=== PATIENT | female | born 1955 | race Caucasian/White ===

== ENCOUNTER 2016-12-16 20:56 | Inpatient (IN) | payer MEDICARE, MEDICAID ==
[~2016-12-16] VITALS: Ht 167.6 cm; Wt 82.6 kg
[2016-12-16 21:36] VITALS: BP 144/88
[2016-12-16] MEDS ORDERED: HALOPERIDOL 5 MG TABLET PO PRN (21:45)
[2016-12-16] MEDS ORDERED: ASEN10TA8 SL (22:00)
[2016-12-16] MEDS ORDERED: ALBU8HFA IH (22:00)
[2016-12-16] MEDS ORDERED: CYCL10 PO (22:00)
[2016-12-16] MEDS ORDERED: BECL8.7A5 (22:00)
[2016-12-16] MEDS ORDERED: PNEUMOCOCCAL VACCINE POLYVALENT 0.5 ML VIAL [PPSV23] IM ONE (22:30)
[2016-12-16] MEDS: ZOLPIDEM TARTRATE 10 MG TABLET PO PRN (22:33)
[2016-12-16 22:34] VITALS: BP 144/88
[2016-12-16] MEDS ORDERED: CloNIDine HCL 0.1 MG TABLET PO PRN (22:45)
[2016-12-16] MEDS ORDERED: ALBUTEROL SULFATE HFA 90 MCG/PUFF 8 GM INHALER IH PRN (22:45)
[2016-12-16] MEDS ORDERED: PETROLATUM,WHITE 71 GM JELLY TP PRN (23:15)
[2016-12-17 01:25] VITALS: BP 106/73
[2016-12-17] MEDS: LORazepam 2 MG TABLET PO PRN (01:25)
[2016-12-17 08:02] VITALS: BP 106/69
[2016-12-17] MEDS: NICOTINE 21 MG/24 HOUR PATCH TD SCH (08:23)
[2016-12-17] MEDS: BECLOMETHASONE DIPR 80 MCG/PUFF 8.7 GM INHALER IH SCH ×2 (08:23→16:40)
[2016-12-17] MEDS: CYCLOBENZAPRINE HCL 10 MG TABLET PO PRN ×2 (08:28→20:24)
[2016-12-17 08:50] LABS: BASOPHILS # (AUTO) 0.02 K/uL (0.00-0.20); BASOPHILS % (AUTO) 0.3 % (0.0-2.0); EOSINOPHILS # (AUTO) 0.13 K/uL (0.00-0.70); EOSINOPHILS % (AUTO) 2.22 % (1.0-6.0); HEMATOCRIT 30.9 % (36-46); HEMOGLOBIN 10.3 g/dL (12.0-16.0); LYMPHOCYTES # (AUTO) 1.5 K/uL (1.0-4.8); LYMPHOCYTES % (AUTO) 25.2 % (22.0-44.0); MEAN CORPUSCULAR HEMOGLOBIN 31.3 pg (26.0-34.0); MEAN CORPUSCULAR HGB CONC 33.2 G/dL (31.0-37.0); MEAN CORPUSCULAR VOLUME 94 fL (80-100); MONOCYTES # (AUTO) 0.5 K/uL (0.1-1.0); MONOCYTES % (AUTO) 8.2 % (2.0-9.0); NEUTROPHILS # (AUTO) 3.7 K/uL (1.8-7.7); NEUTROPHILS % (AUTO) 64.1 % (40.0-70.0); PLATELET COUNT (AUTO) 184 K/uL (150-450); RED BLOOD CELL COUNT(AUTO) 3.28 MIL/uL (4.00-5.20); RED CELL DISTRIBUTION WIDTH 14.2 % (11.5-14.5); WHITE BLOOD COUNT (AUTO) 5.8 K/uL (4.5-11.0)
[2016-12-17 09:24] LABS: ALANINE AMINOTRANSFERASE 27 U/L (12-78); ANION GAP 9 mmol/L (8-16); ASPARTATE AMINOTRANSFERASE 18 U/L (15-37); BILIRUBIN,TOTAL 0.5 mg/dL (0.1-1.0); CALCIUM, TOTAL 8.5 mg/dL (8.8-10.5); CARBON DIOXIDE 28 mmol/L (22-29); CHLORIDE 106 mmol/L (98-107); CHOL/HDL RATIO 4.5 (3.9-5.7); CREATININE 0.75 mg/dL (0.60-1.30); GLOMERULAR FILTR. RATE CALC > 60 mL/min (>60); POTASSIUM 3.2 mmol/L (3.5-5.1); SODIUM SERUM 143 mmol/L (136-145); THYROID STIMULATING HORMONE 0.67 uIU/mL (0.36-3.74); TOTAL PROTEIN, SERUM 6.1 g/dL (6.4-8.2); UREA NITROGEN, BLOOD 10 mg/dL (7-18)
[2016-12-17] MEDS ORDERED: POTASSIUM CHLORIDE 20 MEQ ER TABLET PO ONE (09:45)
[2016-12-17 16:00] VITALS: BP 116/89
[2016-12-17] MEDS: ASENAPINE 10 MG SUBLINGUAL TABLET SL SCH (16:39)
[2016-12-17 20:25] VITALS: BP 117/67
[2016-12-17] MEDS ORDERED: ALBUTEROL SULFATE HFA 90 MCG/PUFF 8 GM INHALER IH PRN (21:15)
[2016-12-18 06:48] VITALS: BP 116/69
[2016-12-18] MEDS: LORazepam 2 MG TABLET PO PRN (07:04)
[2016-12-18 08:11] LABS: HEMOGLOBIN A1C 5.5 % (4.5-6.2)
[2016-12-18 08:24] VITALS: BP 103/61
[2016-12-18 08:39] LABS: CHOL/HDL RATIO 4.7 (3.9-5.7); THYROID STIMULATING HORMONE 0.83 uIU/mL (0.36-3.74)
[2016-12-18] MEDS: CYCLOBENZAPRINE HCL 10 MG TABLET PO PRN ×2 (09:15→17:48)
[2016-12-18] MEDS: ASENAPINE 10 MG SUBLINGUAL TABLET SL SCH ×2 (09:15→16:31)
[2016-12-18] MEDS: NICOTINE 21 MG/24 HOUR PATCH TD SCH (09:15)
[2016-12-18] MEDS: BECLOMETHASONE DIPR 80 MCG/PUFF 8.7 GM INHALER IH SCH ×2 (09:15→16:31)
[2016-12-18] MEDS: IBUPROFEN 400 MG TABLET PO PRN (13:57)
[2016-12-18 16:10] VITALS: BP 120/80
[2016-12-18] MEDS: ZOLPIDEM TARTRATE 10 MG TABLET PO PRN (21:14)
[2016-12-19 06:27] VITALS: BP 117/67
[2016-12-19] MEDS: FERROUS SULFATE 325 MG EC TABLET PO SCH ×2 (07:05→16:43)
[2016-12-19 08:24] VITALS: BP 129/78
[2016-12-19] MEDS: BECLOMETHASONE DIPR 80 MCG/PUFF 8.7 GM INHALER IH SCH ×2 (08:27→16:44)
[2016-12-19] MEDS: ASENAPINE 10 MG SUBLINGUAL TABLET SL SCH ×2 (08:27→16:43)
[2016-12-19] MEDS: NICOTINE 21 MG/24 HOUR PATCH TD SCH (08:27)
[2016-12-19 09:52] VITALS: BP 124/80
[2016-12-19] MEDS: IBUPROFEN 400 MG TABLET PO PRN (09:52)
[2016-12-19] MEDS: DENTURE ADHESIVE 68 GM CREAM DT PRN (10:27)
[2016-12-19] MEDS: LORazepam 2 MG TABLET PO PRN ×2 (13:36→18:45)
[2016-12-19] MEDS: FLUTICASONE/VILANTEROL 200-25 MCG/INH INHALER [14] IH SCH (14:12)
[2016-12-19 16:02] VITALS: BP 112/71
[2016-12-20 00:30] VITALS: BP 111/72
[2016-12-20] MEDS: IBUPROFEN 400 MG TABLET PO PRN (07:11)
[2016-12-20] MEDS: FERROUS SULFATE 325 MG EC TABLET PO SCH ×2 (07:12→16:39)
[2016-12-20 08:19] VITALS: BP 104/87
[2016-12-20] MEDS: FLUTICASONE/VILANTEROL 200-25 MCG/INH INHALER [14] IH SCH (08:51)
[2016-12-20] MEDS: LORazepam 2 MG TABLET PO PRN ×3 (08:51→18:44)
[2016-12-20] MEDS: NICOTINE 21 MG/24 HOUR PATCH TD SCH (08:51)
[2016-12-20] MEDS: ASENAPINE 10 MG SUBLINGUAL TABLET SL SCH ×2 (08:51→16:39)
[2016-12-20] MEDS: BECLOMETHASONE DIPR 80 MCG/PUFF 8.7 GM INHALER IH SCH ×2 (08:51→16:39)
[2016-12-20 16:02] VITALS: BP 116/78
[2016-12-20 20:25] VITALS: BP 123/71
[2016-12-20] MEDS: CYCLOBENZAPRINE HCL 10 MG TABLET PO PRN (20:25)
[2016-12-21 05:29] VITALS: BP 120/69
[2016-12-21] MEDS: FERROUS SULFATE 325 MG EC TABLET PO SCH ×2 (06:02→16:40)
[2016-12-21 08:02] VITALS: BP 123/69
[2016-12-21] MEDS: NICOTINE 21 MG/24 HOUR PATCH TD SCH (08:16)
[2016-12-21] MEDS: ASENAPINE 10 MG SUBLINGUAL TABLET SL SCH ×2 (08:16→16:40)
[2016-12-21] MEDS: BECLOMETHASONE DIPR 80 MCG/PUFF 8.7 GM INHALER IH SCH ×2 (08:17→16:40)
[2016-12-21] MEDS: FLUTICASONE/VILANTEROL 200-25 MCG/INH INHALER [14] IH SCH (08:17)
[2016-12-21] MEDS: TraMADol HCL 50 MG TABLET PO PRN (08:25)
[2016-12-21] MEDS: LORazepam 2 MG TABLET PO PRN (16:02)
[2016-12-21 16:06] VITALS: BP 115/87
[2016-12-22 04:55] VITALS: BP 117/62
[2016-12-22] MEDS: FERROUS SULFATE 325 MG EC TABLET PO SCH ×2 (06:39→16:42)
[2016-12-22 06:56] VITALS: BP 128/78
[2016-12-22 07:05] VITALS: BP 128/78
[2016-12-22] MEDS: IBUPROFEN 400 MG TABLET PO PRN (07:07)
[2016-12-22 08:10] VITALS: BP 111/66
[2016-12-22] MEDS: ASENAPINE 10 MG SUBLINGUAL TABLET SL SCH ×2 (08:46→16:42)
[2016-12-22] MEDS: NICOTINE 21 MG/24 HOUR PATCH TD SCH (08:46)
[2016-12-22] MEDS: FLUTICASONE/VILANTEROL 200-25 MCG/INH INHALER [14] IH SCH (08:46)
[2016-12-22] MEDS: BECLOMETHASONE DIPR 80 MCG/PUFF 8.7 GM INHALER IH SCH ×2 (08:46→16:42)
[2016-12-22] MEDS: CYCLOBENZAPRINE HCL 10 MG TABLET PO PRN (10:54)
[2016-12-22] MEDS: TraMADol HCL 50 MG TABLET PO PRN (14:12)
[2016-12-22] MEDS: LORazepam 2 MG TABLET PO PRN (15:54)
[2016-12-22 16:00] VITALS: BP 126/86
[2016-12-22] MEDS: ZOLPIDEM TARTRATE 10 MG TABLET PO PRN (21:12)
[2016-12-23 00:11] VITALS: BP 130/71
[2016-12-23] MEDS: FERROUS SULFATE 325 MG EC TABLET PO SCH ×2 (06:40→16:33)
[2016-12-23 08:05] VITALS: BP 106/61
[2016-12-23] MEDS: FLUTICASONE/VILANTEROL 200-25 MCG/INH INHALER [14] IH SCH (08:28)
[2016-12-23] MEDS: BECLOMETHASONE DIPR 80 MCG/PUFF 8.7 GM INHALER IH SCH ×2 (08:28→16:33)
[2016-12-23] MEDS: ASENAPINE 10 MG SUBLINGUAL TABLET SL SCH ×2 (08:28→16:33)
[2016-12-23] MEDS: NICOTINE 21 MG/24 HOUR PATCH TD SCH (08:29)
[2016-12-23] MEDS: TraMADol HCL 50 MG TABLET PO PRN ×2 (08:35→17:33)
[2016-12-23] MEDS: LORazepam 2 MG TABLET PO PRN ×2 (13:10→22:22)
[2016-12-23 13:11] VITALS: BP 130/74
[2016-12-23] MEDS: CYCLOBENZAPRINE HCL 10 MG TABLET PO PRN (13:11)
[2016-12-23 16:02] VITALS: BP 113/65
[2016-12-23 17:33] VITALS: BP 117/67
[2016-12-24 00:01] VITALS: BP 140/75
[2016-12-24] MEDS: IBUPROFEN 400 MG TABLET PO PRN (00:01)
[2016-12-24] MEDS: FERROUS SULFATE 325 MG EC TABLET PO SCH ×2 (06:31→16:58)
[2016-12-24 08:20] VITALS: BP 119/76
[2016-12-24] MEDS: BECLOMETHASONE DIPR 80 MCG/PUFF 8.7 GM INHALER IH SCH ×2 (09:09→16:59)
[2016-12-24] MEDS: NICOTINE 21 MG/24 HOUR PATCH TD SCH (09:09)
[2016-12-24] MEDS: FLUTICASONE/VILANTEROL 200-25 MCG/INH INHALER [14] IH SCH (09:09)
[2016-12-24] MEDS: ASENAPINE 10 MG SUBLINGUAL TABLET SL SCH ×2 (09:09→16:59)
[2016-12-24] MEDS: TraMADol HCL 50 MG TABLET PO PRN ×2 (10:39→22:31)
[2016-12-24] MEDS: DENTURE ADHESIVE 68 GM CREAM DT PRN (12:08)
[2016-12-24] MEDS: LORazepam 2 MG TABLET PO PRN ×2 (15:31→21:21)
[2016-12-24] MEDS: ACETAMINOPHEN 325 MG TABLET PO PRN (15:31)
[2016-12-24 16:05] VITALS: BP 117/80
[2016-12-25] VITALS: BP 115/77
[2016-12-25] MEDS: FERROUS SULFATE 325 MG EC TABLET PO SCH ×2 (06:52→17:00)
[2016-12-25] MEDS: FLUTICASONE/VILANTEROL 200-25 MCG/INH INHALER [14] IH SCH (08:24)
[2016-12-25] MEDS: BECLOMETHASONE DIPR 80 MCG/PUFF 8.7 GM INHALER IH SCH ×2 (08:24→17:00)
[2016-12-25] MEDS: ASENAPINE 10 MG SUBLINGUAL TABLET SL SCH (09:00)
[2016-12-25] MEDS: NICOTINE 21 MG/24 HOUR PATCH TD SCH (09:00)
[2016-12-25] MEDS: ACETAMINOPHEN 325 MG TABLET PO PRN (09:06)
[2016-12-25] MEDS ORDERED: LORazepam 2 MG/ML VIAL IM ONE (09:45)
[2016-12-25] MEDS ORDERED: HALOPERIDOL LACTATE 5 MG/ML VIAL IM ONE (09:45)
[2016-12-25] MEDS ORDERED: DiphenhydrAMINE HCL 50 MG/ML VIAL IM ONE (09:45)
[2016-12-25] MEDS: BACITRACIN 28.4 GM OINTMENT TP SCH ×2 (12:52→17:00)
[2016-12-25 13:00] VITALS: BP 178/108
[2016-12-25 20:59] VITALS: BP 114/68
[2016-12-26] VITALS (7 sets, daily range): BP systolic 101–141; BP diastolic 62–93
[2016-12-26] MEDS: LORazepam 2 MG TABLET PO PRN ×2 (04:52→14:08)
[2016-12-26] MEDS: FERROUS SULFATE 325 MG EC TABLET PO SCH ×2 (07:02→16:47)
[2016-12-26] MEDS: RisperiDONE 2 MG TABLET PO SCH ×2 (09:00→16:47)
[2016-12-26] MEDS: DIVALPROEX SODIUM 500 MG DR TABLET PO SCH ×2 (09:00→16:47)
[2016-12-26] MEDS: LITHIUM CARBONATE 300 MG CAPSULE PO SCH ×2 (09:18→16:47)
[2016-12-26] MEDS: FLUTICASONE/VILANTEROL 200-25 MCG/INH INHALER [14] IH SCH (09:19)
[2016-12-26] MEDS: NICOTINE 21 MG/24 HOUR PATCH TD SCH (09:19)
[2016-12-26] MEDS: BECLOMETHASONE DIPR 80 MCG/PUFF 8.7 GM INHALER IH SCH ×2 (09:20→16:53)
[2016-12-26] MEDS: BACITRACIN 28.4 GM OINTMENT TP SCH ×2 (09:20→17:06)
[2016-12-26] MEDS: TraMADol HCL 50 MG TABLET PO PRN (16:48)
[2016-12-26] MEDS: ZOLPIDEM TARTRATE 10 MG TABLET PO PRN (21:05)
[2016-12-27 06:23] VITALS: BP 104/66
[2016-12-27] MEDS: FERROUS SULFATE 325 MG EC TABLET PO SCH ×2 (06:26→17:00)
[2016-12-27 08:12] VITALS: BP 105/62
[2016-12-27] MEDS: LITHIUM CARBONATE 300 MG CAPSULE PO SCH ×2 (08:28→17:00)
[2016-12-27] MEDS: DIVALPROEX SODIUM 500 MG DR TABLET PO SCH ×2 (08:28→17:00)
[2016-12-27] MEDS: BECLOMETHASONE DIPR 80 MCG/PUFF 8.7 GM INHALER IH SCH ×2 (08:29→17:04)
[2016-12-27] MEDS: NICOTINE 21 MG/24 HOUR PATCH TD SCH (08:29)
[2016-12-27] MEDS: BACITRACIN 28.4 GM OINTMENT TP SCH ×2 (08:30→17:03)
[2016-12-27] MEDS: FLUTICASONE/VILANTEROL 200-25 MCG/INH INHALER [14] IH SCH (08:30)
[2016-12-27] MEDS: RisperiDONE 2 MG TABLET PO SCH ×2 (08:47→17:00)
[2016-12-27] MEDS: LORazepam 2 MG TABLET PO PRN ×2 (09:06→16:29)
[2016-12-27 11:49] VITALS: BP 112/66
[2016-12-27] MEDS: TraMADol HCL 50 MG TABLET PO PRN (11:49)
[2016-12-27 16:02] VITALS: BP 112/81
[2016-12-27 17:00] VITALS: BP 112/81
[2016-12-28 00:48] VITALS: BP 121/67
[2016-12-28 04:12] VITALS: BP 122/76
[2016-12-28] MEDS: FERROUS SULFATE 325 MG EC TABLET PO SCH ×2 (06:21→16:32)
[2016-12-28 08:12] VITALS: BP 108/75
[2016-12-28] MEDS: DIVALPROEX SODIUM 500 MG DR TABLET PO SCH ×2 (08:38→16:32)
[2016-12-28] MEDS: LITHIUM CARBONATE 300 MG CAPSULE PO SCH ×2 (08:38→16:32)
[2016-12-28] MEDS: NICOTINE 21 MG/24 HOUR PATCH TD SCH (08:38)
[2016-12-28] MEDS: FLUTICASONE/VILANTEROL 200-25 MCG/INH INHALER [14] IH SCH (08:45)
[2016-12-28] MEDS: RisperiDONE 2 MG TABLET PO SCH ×2 (08:45→16:54)
[2016-12-28] MEDS: BECLOMETHASONE DIPR 80 MCG/PUFF 8.7 GM INHALER IH SCH ×2 (08:46→16:32)
[2016-12-28] MEDS: BACITRACIN 28.4 GM OINTMENT TP SCH ×2 (08:46→16:32)
[2016-12-28] MEDS: TraMADol HCL 50 MG TABLET PO PRN (08:56)
[2016-12-28] MEDS: LORazepam 2 MG TABLET PO PRN ×2 (08:56→16:22)
[2016-12-28 12:50] VITALS: BP 112/78
[2016-12-28] MEDS: ACETAMINOPHEN 325 MG TABLET PO PRN (12:50)
[2016-12-28] MEDS ORDERED: CALCIUM CARBONATE 500 MG CHEWABLE TABLET CHEW PRN (13:45)
[2016-12-28 16:04] VITALS: BP 121/74
[2016-12-29 01:56] VITALS: BP 108/70
[2016-12-29] MEDS: ZOLPIDEM TARTRATE 10 MG TABLET PO PRN ×2 (02:00→22:17)
[2016-12-29] MEDS: FERROUS SULFATE 325 MG EC TABLET PO SCH ×2 (06:52→16:40)
[2016-12-29 08:02] VITALS: BP 131/77
[2016-12-29] MEDS: LITHIUM CARBONATE 300 MG CAPSULE PO SCH ×2 (08:21→16:40)
[2016-12-29] MEDS: DIVALPROEX SODIUM 500 MG DR TABLET PO SCH ×2 (08:21→16:40)
[2016-12-29] MEDS: NICOTINE 21 MG/24 HOUR PATCH TD SCH (08:22)
[2016-12-29] MEDS: BACITRACIN 28.4 GM OINTMENT TP SCH ×2 (08:23→16:40)
[2016-12-29] MEDS: BECLOMETHASONE DIPR 80 MCG/PUFF 8.7 GM INHALER IH SCH ×2 (08:23→16:40)
[2016-12-29] MEDS: RisperiDONE 2 MG TABLET PO SCH ×2 (08:29→16:41)
[2016-12-29] MEDS: FLUTICASONE/VILANTEROL 200-25 MCG/INH INHALER [14] IH SCH (08:29)
[2016-12-29] MEDS: TraMADol HCL 50 MG TABLET PO PRN ×2 (08:30→16:33)
[2016-12-29] MEDS: LORazepam 2 MG TABLET PO PRN ×2 (08:30→14:54)
[2016-12-29 08:44] LABS: LITHIUM 0.44 mmol/L (0.60-1.20)
[2016-12-29 16:08] VITALS: BP 115/71
[2016-12-30 04:41] VITALS: BP 129/70
[2016-12-30] MEDS: FERROUS SULFATE 325 MG EC TABLET PO SCH ×2 (07:04→16:13)
[2016-12-30 08:02] VITALS: BP 112/63
[2016-12-30 08:10] LABS: APPEARANCE,URINE CLEAR (CLEAR); GLUCOSE, URINE (UA) NEGATIVE (NEGATIVE); KETONES,URINE TRACE mg/dL (NEGATIVE); LEUKOCYTE ESTERASE ,URINE NEGATIVE (NEGATIVE); OCCULT BLOOD,URINE NEGATIVE (NEGATIVE); PH,URINE 6.5 (5.0-8.0); PROTEIN,URINE NEGATIVE (NEGATIVE)
[2016-12-30 08:15] LABS: ADD UA MICROSCOPIC NO
[2016-12-30] MEDS: LITHIUM CARBONATE 300 MG CAPSULE PO SCH ×2 (08:22→16:13)
[2016-12-30] MEDS: DIVALPROEX SODIUM 500 MG DR TABLET PO SCH ×2 (08:22→16:13)
[2016-12-30] MEDS: FLUTICASONE/VILANTEROL 200-25 MCG/INH INHALER [14] IH SCH ×2 (08:22→08:48)
[2016-12-30] MEDS: RisperiDONE 2 MG TABLET PO SCH ×3 (08:22→16:14)
[2016-12-30] MEDS: BECLOMETHASONE DIPR 80 MCG/PUFF 8.7 GM INHALER IH SCH ×2 (08:22→16:13)
[2016-12-30] MEDS: NICOTINE 21 MG/24 HOUR PATCH TD SCH (08:23)
[2016-12-30] MEDS: BACITRACIN 28.4 GM OINTMENT TP SCH ×2 (08:23→16:14)
[2016-12-30] MEDS: LORazepam 2 MG TABLET PO PRN ×2 (08:31→13:12)
[2016-12-30] MEDS: TraMADol HCL 50 MG TABLET PO PRN (08:32)
[2016-12-30 16:08] VITALS: BP 109/67
[2016-12-31 06:06] VITALS: BP 101/71
[2016-12-31] MEDS: FERROUS SULFATE 325 MG EC TABLET PO SCH ×2 (06:44→17:02)
[2016-12-31 08:10] VITALS: BP 117/71
[2016-12-31] MEDS: DIVALPROEX SODIUM 500 MG DR TABLET PO SCH ×2 (08:28→17:02)
[2016-12-31] MEDS: NICOTINE 21 MG/24 HOUR PATCH TD SCH (08:28)
[2016-12-31] MEDS: LITHIUM CARBONATE 300 MG CAPSULE PO SCH ×2 (08:28→17:02)
[2016-12-31] MEDS: BECLOMETHASONE DIPR 80 MCG/PUFF 8.7 GM INHALER IH SCH ×2 (08:30→16:39)
[2016-12-31] MEDS: FLUTICASONE/VILANTEROL 200-25 MCG/INH INHALER [14] IH SCH (08:33)
[2016-12-31] MEDS: RisperiDONE 2 MG TABLET PO SCH ×2 (08:34→17:00)
[2016-12-31] MEDS: TraMADol HCL 50 MG TABLET PO PRN (08:34)
[2016-12-31] MEDS: BACITRACIN 28.4 GM OINTMENT TP SCH ×2 (08:34→16:39)
[2016-12-31 09:58] VITALS: BP 118/74
[2016-12-31] MEDS: LORazepam 2 MG TABLET PO PRN (09:58)
[2016-12-31] MEDS: CYCLOBENZAPRINE HCL 10 MG TABLET PO PRN (09:58)
[2016-12-31 16:05] VITALS: BP 118/71
[2016-12-31] MEDS: ZOLPIDEM TARTRATE 10 MG TABLET PO PRN (20:53)
[2017-01-01 06:01] VITALS: BP 124/70
[2017-01-01] MEDS: FERROUS SULFATE 325 MG EC TABLET PO SCH ×2 (06:12→16:37)
[2017-01-01 08:16] VITALS: BP 100/59
[2017-01-01] MEDS: BECLOMETHASONE DIPR 80 MCG/PUFF 8.7 GM INHALER IH SCH ×2 (08:38→17:07)
[2017-01-01] MEDS: LITHIUM CARBONATE 300 MG CAPSULE PO SCH ×2 (08:38→16:37)
[2017-01-01] MEDS: NICOTINE 21 MG/24 HOUR PATCH TD SCH (08:38)
[2017-01-01] MEDS: DIVALPROEX SODIUM 500 MG DR TABLET PO SCH ×2 (08:38→16:37)
[2017-01-01] MEDS: FLUTICASONE/VILANTEROL 200-25 MCG/INH INHALER [14] IH SCH (08:39)
[2017-01-01] MEDS: RisperiDONE 2 MG TABLET PO SCH ×2 (08:39→17:00)
[2017-01-01] MEDS: BACITRACIN 28.4 GM OINTMENT TP SCH ×2 (08:39→16:37)
[2017-01-01] MEDS: DENTURE ADHESIVE 68 GM CREAM DT PRN (08:58)
[2017-01-01] MEDS: TraMADol HCL 50 MG TABLET PO PRN (08:59)
[2017-01-01] MEDS: LORazepam 2 MG TABLET PO PRN (13:48)
[2017-01-01 17:03] VITALS: BP 123/75
[2017-01-01] MEDS: ZOLPIDEM TARTRATE 10 MG TABLET PO PRN (21:03)
[2017-01-02 06:21] VITALS: BP 126/75
[2017-01-02] MEDS: FERROUS SULFATE 325 MG EC TABLET PO SCH (06:30)
[2017-01-02 08:02] VITALS: BP 99/57
[2017-01-02] MEDS: FLUTICASONE/VILANTEROL 200-25 MCG/INH INHALER [14] IH SCH (09:00)
[2017-01-02] MEDS: BACITRACIN 28.4 GM OINTMENT TP SCH (09:00)
[2017-01-02] MEDS: RisperiDONE 2 MG TABLET PO SCH (09:00)
[2017-01-02] MEDS: NICOTINE 21 MG/24 HOUR PATCH TD SCH (09:30)
[2017-01-02] MEDS: BECLOMETHASONE DIPR 80 MCG/PUFF 8.7 GM INHALER IH SCH (09:30)
[2017-01-02] MEDS: TraMADol HCL 50 MG TABLET PO PRN (09:30)
[2017-01-02] MEDS: LITHIUM CARBONATE 300 MG CAPSULE PO SCH (09:30)
[2017-01-02] MEDS: DIVALPROEX SODIUM 500 MG DR TABLET PO SCH (09:30)
[2017-01-02] MEDS: LORazepam 2 MG TABLET PO PRN (10:48)
[2017-01-02] MEDS ORDERED: LITH300C3 PO (12:20)
[2017-01-02] MEDS ORDERED: FLUT1BLS PO (12:20)
[2017-01-02] MEDS ORDERED: DIVA500T35 PO (12:20)
[2017-01-02] MEDS ORDERED: FERR-89 PO (12:20)
[2017-01-02] MEDS ORDERED: RISP2 PO (12:20)
== END 2017-01-02 13:15 | disposition home or self-care (01) | DRG 750 ==
LOC: EDSTATUS 20:58 → B2X 21:43 → EDSTATUS 21:49 → B2X 22:23
PROVIDERS: ADMIT Psychiatry & Neurology Psychiatry; ATTEND Psychiatry & Neurology Psychiatry
PROC: 3E0234Z Introduction of Serum, Toxoid and Vaccine into Muscle, Percutaneous Approach (ICD-10-PCS; principal; 2016-12-17)
DX: F20.0 Paranoid schizophrenia (principal); J44.9 Chronic obstructive pulmonary disease, unspecified; G89.4 Chronic pain syndrome; G40.909 Epilepsy, unspecified, not intractable, without status epilepticus; D64.9 Anemia, unspecified; E87.6 Hypokalemia; Z23 Encounter for immunization
CPT/HCPCS: 83036; 84132; 84439; 84443; 87081; 90471; J1200; J1630; J2060; J3535

== ENCOUNTER 2018-05-09 16:18 | Inpatient (IN) | payer MEDICARE, MEDICAID ==
[~2018-05-09] VITALS: Ht 167.6 cm; Wt 60.7 kg
[~2018-05-09 16:18] MED LIST: BECL8.7A7; DIVA-78 PO; FERR-89 PO; FLUT1BLS PO; LITH300C3 PO; RISP2 PO
[2018-05-09] MEDS ORDERED: CLON.5 PO (17:30)
[2018-05-09] MEDS ORDERED: GABA-529 PO (17:30)
[2018-05-09 17:55] LABS: BASOPHILS % (AUTO) 1.1 % (0.0-2.0); EOSINOPHILS % (AUTO) 2.3 % (1.0-6.0); HEMATOCRIT 31.6 % (36-46); HEMOGLOBIN 10.8 g/dL (12.0-16.0); LYMPHOCYTES # (AUTO) 1.6 K/uL (1.0-4.8); LYMPHOCYTES % (AUTO) 23.2 % (22.0-44.0); MEAN CORPUSCULAR HEMOGLOBIN 31.5 pg (26.0-34.0); MEAN CORPUSCULAR HGB CONC 34.2 G/dL (31.0-37.0); MEAN CORPUSCULAR VOLUME 92 fL (80-100); MONOCYTES # (AUTO) 0.4 K/uL (0.1-1.0); MONOCYTES % (AUTO) 5.7 % (2.0-9.0); NEUTROPHILS # (AUTO) 4.6 K/uL (1.8-7.7); NEUTROPHILS % (AUTO) 67.7 % (40.0-70.0); PLATELET COUNT (AUTO) 212 K/uL (150-450); RED BLOOD CELL COUNT(AUTO) 3.44 MIL/uL (4.00-5.20); RED CELL DISTRIBUTION WIDTH 14.3 % (11.5-14.5)
[2018-05-09 18:13] LABS: ANION GAP 8 mmol/L (8-16); CALCIUM, TOTAL 8.5 mg/dL (8.8-10.5); CARBON DIOXIDE 29 mmol/L (22-29); CHLORIDE 107 mmol/L (98-107); CREATININE 0.76 mg/dL (0.60-1.30); GLOMERULAR FILTR. RATE CALC > 60 mL/min (>60); GLUCOSE,RANDOM 91 mg/dL (70-110); POTASSIUM 3.6 mmol/L (3.5-5.1); SODIUM SERUM 144 mmol/L (136-145); UREA NITROGEN, BLOOD 14 mg/dL (7-18)
[2018-05-09 18:19] LABS: ALANINE AMINOTRANSFERASE 15 U/L (12-78); ALBUMIN 3.3 g/dL (3.4-5.0); ALKALINE PHOSPHATASE 99 U/L (46-116); ASPARTATE AMINOTRANSFERASE 16 U/L (15-37); BILIRUBIN,TOTAL 0.8 mg/dL (0.1-1.0); TOTAL PROTEIN, SERUM 6.2 g/dL (6.4-8.2)
[2018-05-09] MEDS ORDERED: PROP10TA73 PO (18:22)
[2018-05-09] MEDS ORDERED: TRIH2TAB3 PO (18:22)
[2018-05-09] MEDS ORDERED: ACETAMINOPHEN 325 MG TABLET PO PRN ×2 (18:30→22:15)
[2018-05-09 19:20] LABS: AMPHET/METH SCREEN,URINE POSITIVE (NEGATIVE); BARBITURATE SCREEN, URINE NEGATIVE (NEGATIVE); BENZODIAZEPINES SCREEN,URINE NEGATIVE (NEGATIVE); CANNABINOID SCREEN,URINE NEGATIVE (NEGATIVE); COCAINE SCREEN,URINE NEGATIVE (NEGATIVE); METHADONE SCREEN, URINE NEGATIVE (NEGATIVE); OPIATE SCREEN,URINE NEGATIVE (NEGATIVE)
[2018-05-09 19:37] LABS: PHENCYCLIDINE SCREEN,URINE NEGATIVE (NEGATIVE)
[2018-05-09 21:03] VITALS: BP 119/71
[2018-05-09] MEDS: OLANZapine 5 MG RAPDIS TABLET PO PRN (21:12)
[2018-05-09] MEDS: LORazepam 2 MG TABLET PO PRN (21:12)
[2018-05-09] MEDS ORDERED: -PHARMACY VACCINE NOTE- MISC ONE (21:45)
[2018-05-09] MEDS ORDERED: DOCUSATE SODIUM 100 MG CAPSULE PO PRN (22:15)
[2018-05-09] MEDS ORDERED: NICOTINE 14 MG/24 HOUR PATCH TD PRN (22:15)
[2018-05-09] MEDS ORDERED: MAG HYDROX/AL HYDROX/SIMETH ES 30 ML SUSPENSION UDCUP PO PRN (22:15)
[2018-05-09] MEDS ORDERED: ONDANSETRON HCL 4 MG TABLET PO PRN (22:15)
[2018-05-09] MEDS ORDERED: ALBUTEROL SULFATE HFA 90 MCG/PUFF 8 GM INHALER IH PRN (22:15)
[2018-05-09] MEDS ORDERED: GuaiFENesin/D-METHORPHAN [SUGAR-FREE] 200-20MG/10 ML SYRUP UDCUP PO PRN (22:15)
[2018-05-09] MEDS ORDERED: IBUPROFEN 400 MG TABLET PO PRN (22:15)
[2018-05-09] MEDS ORDERED: PETROLATUM,WHITE 71 GM JELLY TP PRN (22:15)
[2018-05-09] MEDS ORDERED: LOPERAMIDE HCL 2 MG CAPSULE PO PRN (22:15)
[2018-05-09] MEDS ORDERED: CloNIDine HCL 0.1 MG TABLET PO PRN (22:15)
[2018-05-09] MEDS ORDERED: MAGNESIUM HYDROXIDE SUSPENSION 30 ML UDCUP PO PRN (22:15)
[2018-05-10 06:07] LABS: BASOPHILS % (AUTO) 0.9 % (0.0-2.0); EOSINOPHILS % (AUTO) 3.4 % (1.0-6.0); HEMATOCRIT 30.7 % (36-46); HEMOGLOBIN 10.6 g/dL (12.0-16.0); LYMPHOCYTES # (AUTO) 2.5 K/uL (1.0-4.8); LYMPHOCYTES % (AUTO) 51.6 % (22.0-44.0); MEAN CORPUSCULAR HEMOGLOBIN 31.5 pg (26.0-34.0); MEAN CORPUSCULAR HGB CONC 34.5 G/dL (31.0-37.0); MEAN CORPUSCULAR VOLUME 91 fL (80-100); MONOCYTES # (AUTO) 0.4 K/uL (0.1-1.0); MONOCYTES % (AUTO) 7.4 % (2.0-9.0); NEUTROPHILS # (AUTO) 1.8 K/uL (1.8-7.7); NEUTROPHILS % (AUTO) 36.7 % (40.0-70.0); PLATELET COUNT (AUTO) 191 K/uL (150-450); RED BLOOD CELL COUNT(AUTO) 3.36 MIL/uL (4.00-5.20); RED CELL DISTRIBUTION WIDTH 14.3 % (11.5-14.5)
[2018-05-10 06:16] LABS: HEMOGLOBIN A1C 5.3 % (4.5-6.2)
[2018-05-10 06:33] LABS: CHOL/HDL RATIO 3.8 (3.9-5.7); THYROID STIMULATING HORMONE 0.5 uIU/mL (0.36-3.74)
[2018-05-10] MEDS: NICOTINE 14 MG/24 HOUR PATCH TD SCH (08:45)
[2018-05-10] MEDS: ARIPiprazole 5 MG TABLET PO SCH (13:50)
[2018-05-10 14:23] VITALS: BP 130/67
[2018-05-10] MEDS: PROPRANOLOL HCL 10 MG TABLET PO SCH (16:45)
[2018-05-10] MEDS: GABAPENTIN 300 MG CAPSULE PO SCH ×2 (16:45→20:17)
[2018-05-10] MEDS ORDERED: DENTURE ADHESIVE 68 GM CREAM DT PRN (17:15)
[2018-05-10 18:17] VITALS: BP 131/73
[2018-05-11 06:51] LABS: % IRON SATURATION 20.6 % (22-44)
[2018-05-11] MEDS: GABAPENTIN 300 MG CAPSULE PO SCH ×4 (08:27→20:02)
[2018-05-11] MEDS: ARIPiprazole 5 MG TABLET PO SCH (08:27)
[2018-05-11] MEDS: PROPRANOLOL HCL 10 MG TABLET PO SCH ×2 (08:27→16:53)
[2018-05-11] MEDS: NICOTINE 14 MG/24 HOUR PATCH TD SCH (08:28)
[2018-05-11] MEDS: OLANZapine 5 MG RAPDIS TABLET PO PRN (09:01)
[2018-05-11] MEDS: LORazepam 2 MG TABLET PO PRN (09:02)
[2018-05-11 11:43] VITALS: BP 138/54
[2018-05-11] MEDS: IBUPROFEN 400 MG TABLET PO PRN (11:43)
[2018-05-11 18:22] VITALS: BP 111/66
[2018-05-12] MEDS: GABAPENTIN 300 MG CAPSULE PO SCH ×4 (08:52→20:29)
[2018-05-12] MEDS: NICOTINE 14 MG/24 HOUR PATCH TD SCH (08:53)
[2018-05-12] MEDS: PROPRANOLOL HCL 10 MG TABLET PO SCH ×2 (08:53→17:00)
[2018-05-12] MEDS: ARIPiprazole 5 MG TABLET PO SCH (08:53)
[2018-05-12 09:43] VITALS: BP 116/66
[2018-05-12] MEDS: LORazepam 2 MG TABLET PO PRN ×2 (10:00→17:11)
[2018-05-12 16:00] VITALS: BP 142/77
[2018-05-12] MEDS: ZOLPIDEM TARTRATE 10 MG TABLET PO PRN (20:28)
[2018-05-13] MEDS: ARIPiprazole 5 MG TABLET PO SCH (08:46)
[2018-05-13] MEDS: PROPRANOLOL HCL 10 MG TABLET PO SCH ×2 (08:47→16:31)
[2018-05-13] MEDS: GABAPENTIN 300 MG CAPSULE PO SCH ×4 (08:48→20:09)
[2018-05-13] MEDS: NICOTINE 14 MG/24 HOUR PATCH TD SCH (08:48)
[2018-05-13 09:21] VITALS: BP 151/69
[2018-05-13] MEDS: LORazepam 2 MG TABLET PO PRN ×2 (09:37→21:37)
[2018-05-13 16:37] VITALS: BP 127/58
[2018-05-14] MEDS: ZOLPIDEM TARTRATE 10 MG TABLET PO PRN (00:10)
[2018-05-14 05:03] VITALS: BP 135/67
[2018-05-14] MEDS: IBUPROFEN 400 MG TABLET PO PRN (05:11)
[2018-05-14 08:14] VITALS: BP 111/67
[2018-05-14] MEDS: ARIPiprazole 5 MG TABLET PO SCH (08:45)
[2018-05-14] MEDS: PROPRANOLOL HCL 10 MG TABLET PO SCH ×2 (08:45→16:13)
[2018-05-14] MEDS: GABAPENTIN 300 MG CAPSULE PO SCH ×4 (08:45→20:20)
[2018-05-14] MEDS: NICOTINE 14 MG/24 HOUR PATCH TD SCH (08:51)
[2018-05-14] MEDS: LORazepam 2 MG TABLET PO PRN (18:45)
[2018-05-14 21:31] VITALS: BP 109/68
[2018-05-15 00:05] VITALS: BP 132/81
[2018-05-15] MEDS: ZOLPIDEM TARTRATE 10 MG TABLET PO PRN (00:09)
[2018-05-15] MEDS: GABAPENTIN 300 MG CAPSULE PO SCH ×2 (08:56→12:35)
[2018-05-15] MEDS: ARIPiprazole 5 MG TABLET PO SCH (08:56)
[2018-05-15] MEDS: PROPRANOLOL HCL 10 MG TABLET PO SCH (08:56)
[2018-05-15] MEDS: NICOTINE 14 MG/24 HOUR PATCH TD SCH (08:57)
[2018-05-15 09:00] VITALS: BP 97/66
[2018-05-15] MEDS ORDERED: ARIP5TAB8 PO (09:59)
[2018-05-15] MEDS: LORazepam 2 MG TABLET PO PRN (11:05)
== END 2018-05-15 14:45 | disposition home or self-care (01) | DRG 885 ==
LOC: EMS 16:19 → 3EX 19:00
PROVIDERS: ADMIT Psychiatry & Neurology Psychiatry; ATTEND Psychiatry & Neurology Psychiatry
DX: F25.0 Schizoaffective disorder, bipolar type (principal); E44.0 Moderate protein-calorie malnutrition; D64.9 Anemia, unspecified; F15.10 Other stimulant abuse, uncomplicated; F41.9 Anxiety disorder, unspecified; G20 Parkinson's disease; G40.909 Epilepsy, unspecified, not intractable, without status epilepticus; I10 Essential (primary) hypertension; J44.9 Chronic obstructive pulmonary disease, unspecified; M79.7 Fibromyalgia; F17.210 Nicotine dependence, cigarettes, uncomplicated; Z87.820 Personal history of traumatic brain injury; Z68.21 Body mass index [BMI] 21.0-21.9, adult
CPT/HCPCS: 82728; 83036; 83540; 83550; 84443; 99285; G0480; Q0162

== ENCOUNTER 2018-05-19 15:05 | Emergency (ER) | payer OTHER, MEDICAID ==
[~2018-05-19] VITALS: Ht 167.6 cm; Wt 59.0 kg
[~2018-05-19 15:05] MED LIST changes: +ARIP5TAB8 PO; -BECL8.7A7; -DIVA-78 PO; -FERR-89 PO; -FLUT1BLS PO; +GABA-529 PO; -LITH300C3 PO; +PROP10TA73 PO; -RISP2 PO
[2018-05-19] MEDS ORDERED: TRIH2TAB3 PO (16:14)
[2018-05-19 16:17] LABS: BASOPHILS % (AUTO) 0.7 % (0.0-2.0); EOSINOPHILS % (AUTO) 2.4 % (1.0-6.0); HEMATOCRIT 35.7 % (36-46); HEMOGLOBIN 12.3 g/dL (12.0-16.0); LYMPHOCYTES # (AUTO) 2.8 K/uL (1.0-4.8); LYMPHOCYTES % (AUTO) 42.5 % (22.0-44.0); MEAN CORPUSCULAR HEMOGLOBIN 31.7 pg (26.0-34.0); MEAN CORPUSCULAR HGB CONC 34.4 G/dL (31.0-37.0); MEAN CORPUSCULAR VOLUME 92 fL (80-100); MONOCYTES # (AUTO) 0.3 K/uL (0.1-1.0); NEUTROPHILS # (AUTO) 3.2 K/uL (1.8-7.7); NEUTROPHILS % (AUTO) 49.4 % (40.0-70.0); PLATELET COUNT (AUTO) 242 K/uL (150-450); RED BLOOD CELL COUNT(AUTO) 3.88 MIL/uL (4.00-5.20); RED CELL DISTRIBUTION WIDTH 14.3 % (11.5-14.5)
[2018-05-19 16:26] LABS: ANION GAP 10 mmol/L (8-16); CALCIUM, TOTAL 8.9 mg/dL (8.8-10.5); CARBON DIOXIDE 30 mmol/L (22-29); CHLORIDE 102 mmol/L (98-107); CREATININE 0.75 mg/dL (0.60-1.30); GLOMERULAR FILTR. RATE CALC > 60 mL/min (>60); GLUCOSE,RANDOM 102 mg/dL (70-110); POTASSIUM 3.7 mmol/L (3.5-5.1); SODIUM SERUM 142 mmol/L (136-145); UREA NITROGEN, BLOOD 9 mg/dL (7-18)
[2018-05-19] MEDS ORDERED: LORazepam 1 MG TABLET PO ONE ×2 (16:45→18:45)
[2018-05-19 17:05] LABS: AMPHET/METH SCREEN,URINE NEGATIVE (NEGATIVE); BARBITURATE SCREEN, URINE NEGATIVE (NEGATIVE); BENZODIAZEPINES SCREEN,URINE NEGATIVE (NEGATIVE); CANNABINOID SCREEN,URINE NEGATIVE (NEGATIVE); COCAINE SCREEN,URINE NEGATIVE (NEGATIVE); METHADONE SCREEN, URINE NEGATIVE (NEGATIVE); OPIATE SCREEN,URINE NEGATIVE (NEGATIVE); PHENCYCLIDINE SCREEN,URINE NEGATIVE (NEGATIVE)
[2018-05-19] MEDS ORDERED: IBUPROFEN 800 MG TABLET PO ONE (17:45)
[2018-05-19 19:20] VITALS: BP 123/80
== END 2018-05-19 19:31 | disposition home or self-care (01) ==
LOC: EMS 15:06
DX: F41.9 Anxiety disorder, unspecified (principal); F31.9 Bipolar disorder, unspecified; J44.9 Chronic obstructive pulmonary disease, unspecified; F20.9 Schizophrenia, unspecified; F17.210 Nicotine dependence, cigarettes, uncomplicated; Z79.899 Other long term (current) drug therapy
CPT/HCPCS: 36415; 80048; 80307; 85025; 99284; G0480

== ENCOUNTER 2020-01-04 21:28 | Emergency (ER) | payer MEDICARE, MEDICAID ==
[~2020-01-04] VITALS: Ht 167.6 cm; Wt 72.7 kg
[~2020-01-04 21:28] MED LIST changes: +ARIP10TA8 PO; -ARIP5TAB8 PO; +CEPH-581 PO; +CLON.5 PO; +GABA-1181 PO; -GABA-529 PO; -PROP10TA73 PO; +TRIH2TAB3 PO
[2020-01-04 21:34] VITALS: BP 125/89
== END 2020-01-04 22:00 | disposition left against medical advice (07) ==
LOC: EMS 21:30
DX: F91.9 Conduct disorder, unspecified (principal); F17.210 Nicotine dependence, cigarettes, uncomplicated

== ENCOUNTER 2020-03-28 01:15 | Emergency (ER) | payer MEDICARE, MEDICAID ==
[~2020-03-28] VITALS: Ht 167.6 cm; Wt 65.9 kg
[2020-03-28 05:20] VITALS: BP 132/86
== END 2020-03-28 05:32 | disposition home or self-care (01) ==
LOC: EMS 01:15 → EDUNIT# 01:15 → EMS 05:32
DX: F41.9 Anxiety disorder, unspecified (principal); R00.2 Palpitations; F31.9 Bipolar disorder, unspecified; J44.9 Chronic obstructive pulmonary disease, unspecified; F20.9 Schizophrenia, unspecified; F17.210 Nicotine dependence, cigarettes, uncomplicated; Z88.8 Allergy status to other drugs, medicaments and biological substances
CPT/HCPCS: Z7502